=== PATIENT | female | born 1995 | race Caucasian/White ===

== ENCOUNTER 2017-11-05 10:17 | Day surgery (SDC) | payer OTHER ==
[2017-11-05] MEDS: NS 1,000 ML IV (10:40)
[2017-11-05] MEDS ORDERED: LIDOCAINE 2% INJ 100 MG/5 ML SDV (FOR ANES.) As Ordered (11:41)
[2017-11-05] MEDS ORDERED: PROPOFOL 200 MG/20 ML VIAL As Ordered (11:41)
== END 2017-11-05 12:35 | disposition home or self-care (01) ==
LOC: M OPP 10:17
DX: R12 Heartburn (principal); K22.8 Other specified diseases of esophagus; K44.9 Diaphragmatic hernia without obstruction or gangrene; K25.9 Gastric ulcer, unspecified as acute or chronic, without hemorrhage or perforation; K21.9 Gastro-esophageal reflux disease without esophagitis; R06.02 Shortness of breath; F31.9 Bipolar disorder, unspecified; G43.909 Migraine, unspecified, not intractable, without status migrainosus; Z86.711 Personal history of pulmonary embolism; G47.8 Other sleep disorders; E66.9 Obesity, unspecified; F12.20 Cannabis dependence, uncomplicated; Z79.01 Long term (current) use of anticoagulants; Z79.899 Other long term (current) drug therapy; Z87.891 Personal history of nicotine dependence
CPT/HCPCS: 43239

== ENCOUNTER 2017-12-22 16:21 | Emergency (ER) | payer OTHER ==
[2017-12-22 17:13] LABS: HEMATOCRIT 36.4 % (36.0-47.0); MEAN CORPUSCULAR HEMOGLOBIN 31.2 pg (27.0-33.0); MEAN CORPUSCULAR VOLUME 94.5 fl (80.0-96.0); PLATELET COUNT, AUTOMATED 278 10^3/uL (150-450); RED BLOOD COUNT 3.85 10^6/uL (4.00-5.40); RED CELL DISTRIBUTION WIDTH 14.6 % (11.5-14.5); WHITE BLOOD COUNT 6.2 10^3/uL (4.0-10.0)
[2017-12-22 17:22] LABS: CONTROL LINE HCG INT CTR LINE PRESENT; HCG, SERUM QUALITATIVE NEGATIVE (NEGATIVE)
[2017-12-22 17:26] LABS: AMPHETAMINES LEVEL URINE NEGATIVE (NEGATIVE); BARBITURATES URINE NEGATIVE (NEGATIVE); BENZODIAZEPINES URINE NEGATIVE (NEGATIVE); CANNABINOIDS URINE POSITIVE (NEGATIVE); COCAINE METABOLITE URINE NEGATIVE (NEGATIVE); METHADONE URINE NEGATIVE (NEGATIVE); OPIATES URINE NEGATIVE (NEGATIVE); PHENCYCLIDINE URINE NEGATIVE (NEGATIVE)
[2017-12-22 17:39] LABS: ACETAMINOPHEN LEVEL < 2.0 UG/ML (10.0-30.0); ALBUMIN 3.4 GM/DL (3.2-5.2); ALKALINE PHOSPHATASE 92 U/L (45-117); ALT/SGPT 19 U/L (12-78); ANION GAP 4 MEQ/L (8-16); AST/SGOT 14 U/L (7-37); BILIRUBIN,DIRECT < 0.1 MG/DL (0.0-0.2); BILIRUBIN,TOTAL 0.2 MG/DL (0.2-1.0); BLOOD UREA NITROGEN 11 MG/DL (7-18); CALCIUM LEVEL 8.4 MG/DL (8.5-10.1); CARBON DIOXIDE LEVEL 28 MEQ/L (21-32); CHLORIDE LEVEL 110 MEQ/L (98-107); CREATININE FOR GFR 0.74 MG/DL (0.55-1.30); GLOMERULAR FILTRATION RATE > 60.0 (>60); GLUCOSE, FASTING 80 MG/DL (70-100); POTASSIUM SERUM 3.9 MEQ/L (3.5-5.1); SALICYLATE LEVEL 2.5 MG/DL (5.0-30.0); SODIUM LEVEL 142 MEQ/L (136-145); TOTAL PROTEIN 6.8 GM/DL (6.4-8.2)
[2017-12-22 17:41] LABS: ETHYL ALCOHOL (ETHANOL) < 0.003 % (0.000-0.010)
== END 2017-12-22 19:41 | disposition home or self-care (01) ==
LOC: M ED 16:21
DX: F43.0 Acute stress reaction (principal); F31.9 Bipolar disorder, unspecified; F20.9 Schizophrenia, unspecified; Z86.711 Personal history of pulmonary embolism
CPT/HCPCS: 80320

== ENCOUNTER 2020-09-29 19:52 | Emergency (ER) | payer MEDICAID, OTHER, SELFPAY ==
[~2020-09-29] VITALS: Ht 154.9 cm; Wt 102.4 kg
[~2020-09-29 19:52] MED LIST: ACET-683 PO; ACET1TAB16 PO; ALBU17IN INH; BUPR1TAB53 PO; FLON0.054; IBUP100S44 PO; IBUP80TA PO; MELO7.5T7 PO; NEXI1CAP3 GT; NICO21DI26 TOP; OMEP40CA97 PO; OXYC1TAB23 PO; PRENTAB9 PO; PRIL40CA PO; SUCR1TA PO; WELL75TA PO; XARE10TA PO; XARE15TA PO; XULA1DIS TD; ZOLO100T PO; ZOLO50TA PO
[2020-09-29] MEDS ORDERED: CITA20TA6 PO (19:57)
[2020-09-29] MEDS ORDERED: CLAR5TAB7 PO (19:57)
[2020-09-29 20:36] LABS: BASO % 0.4 % (0.0-1.0); EOS # 0.2 10^3/uL (0.0-0.5); EOS % 1.6 % (0.0-3.0); HEMATOCRIT 36.2 % (36.0-47.0); HEMOGLOBIN 11.6 g/dl (12.0-15.5); LYMPH % 28.8 % (24.0-44.0); MEAN CORPUSCULAR HEMOGLOBIN 30.5 pg (27.0-33.0); MEAN CORPUSCULAR VOLUME 95.3 fl (80.0-96.0); MONO # 0.8 10^3/uL (0.0-0.8); MONO % 7.8 % (0.0-5.0); NEUTROPHILS # 6.3 10^3/uL (1.5-8.5); PLATELET COUNT, AUTOMATED 301 10^3/uL (150-450); WHITE BLOOD COUNT 10.3 10^3/uL (4.0-10.0)
[2020-09-29 21:48] VITALS: BP 117/59
== END 2020-09-29 21:53 | disposition home or self-care (01) ==
LOC: M ED 19:52
DX: Z32.01 Encounter for pregnancy test, result positive (principal); O26.891 Other specified pregnancy related conditions, first trimester; M54.9 Dorsalgia, unspecified; O26.811 Pregnancy related exhaustion and fatigue, first trimester; Z79.899 Other long term (current) drug therapy; Z3A.00 Weeks of gestation of pregnancy not specified

== ENCOUNTER → 2020-11-01 | Outpatient (REF) | payer OTHER ==
[~2020-11-01] MED LIST changes: +CITA20TA6 PO; +CLAR5TAB7 PO
[2020-11-01 16:15] LABS: HEMATOCRIT 36.9 % (36.0-47.0); HEMOGLOBIN 12.4 g/dl (12.0-15.5); MEAN CORPUSCULAR HGB CONC 33.6 g/dl (32.0-36.5); MEAN CORPUSCULAR VOLUME 95.3 fl (80.0-96.0); PLATELET COUNT, AUTOMATED 261 10^3/uL (150-450); RED BLOOD COUNT 3.87 10^6/uL (4.00-5.40); WHITE BLOOD COUNT 8.9 10^3/uL (4.0-10.0)
[2020-11-01 16:52] LABS: HEPATITIS C VIRUS ABY INDEX 0.1 INDEX (<0.8); HIV 1&2 SCREEN CENTAUR NEGATIVE (NEGATIVE)
[2020-11-01 17:37] LABS: CHLAMYDIA DNA AMPLIFICATION NEGATIVE (NEGATIVE); GC DNA AMPLIFICATION NEGATIVE (NEGATIVE)
== END ==
LOC: M PLALAB 12:51
PROVIDERS: ATTEND Obstetrics & Gynecology
DX: O34.211 Maternal care for low transverse scar from previous cesarean delivery (principal)

== ENCOUNTER → 2020-11-06 | Outpatient (REF) | payer OTHER | LOC: M PLALAB 10:25 | PROVIDERS: ATTEND Obstetrics & Gynecology | DX: O09.291 Supervision of pregnancy with other poor reproductive or obstetric history, first trimester (principal) ==

== ENCOUNTER → 2020-11-06 | Outpatient (REF) | payer OTHER ==
[2020-11-06 15:00] LABS: CREATININE,RANDOM URINE 39.9 MG/DL; TOTAL PROTEIN,RANDOM URINE < 5.0 MG/DL (0.0-12.0)
== END ==
LOC: M SFHCWAGY 13:25
PROVIDERS: ATTEND Obstetrics & Gynecology
DX: O09.291 Supervision of pregnancy with other poor reproductive or obstetric history, first trimester (principal)

== ENCOUNTER → 2020-11-14 | Outpatient (REF) | payer OTHER | LOC: M PLALAB 11:22 | PROVIDERS: ATTEND Obstetrics & Gynecology | DX: Z86.32 Personal history of gestational diabetes (principal) ==

== ENCOUNTER → 2020-11-14 | Outpatient (CLI) | payer OTHER | LOC: M PLALAB 11:26 | PROVIDERS: ATTEND Obstetrics & Gynecology | DX: Z34.81 Encounter for supervision of other normal pregnancy, first trimester (principal) ==

== ENCOUNTER 2020-11-28 15:57 | Emergency (ER) | payer OTHER ==
[~2020-11-28] VITALS: Ht 154.9 cm; Wt 99.4 kg
[2020-11-28] MEDS ORDERED: ONDA-83 (16:15)
[2020-11-28] MEDS ORDERED: ASPI81CH33 PO (16:15)
[2020-11-28] MEDS ORDERED: SERT25TA21 (16:15)
[2020-11-28] MEDS ORDERED: NS 1,000 ML IV ONE (16:35)
[2020-11-28 17:20] LABS: BASO % 0.2 % (0.0-1.0); EOS # 0.1 10^3/uL (0.0-0.5); EOS % 0.6 % (0.0-3.0); HEMATOCRIT 37.2 % (36.0-47.0); HEMOGLOBIN 12.5 g/dl (12.0-15.5); LYMPH # 1.6 10^3/uL (1.5-5.0); MEAN CORPUSCULAR HEMOGLOBIN 32.2 pg (27.0-33.0); MEAN CORPUSCULAR HGB CONC 33.6 g/dl (32.0-36.5); MEAN CORPUSCULAR VOLUME 95.9 fl (80.0-96.0); MONO # 0.8 10^3/uL (0.0-0.8); MONO % 6.9 % (2.0-8.0); NEUTROPHILS # 8.6 10^3/uL (1.5-8.5); NEUTROPHILS % 77.9 % (36.0-66.0); PLATELET COUNT, AUTOMATED 222 10^3/uL (150-450); RED BLOOD COUNT 3.88 10^6/uL (4.00-5.40); WHITE BLOOD COUNT 11.1 10^3/uL (4.0-10.0)
[2020-11-28 17:25] LABS: APPEARANCE, URINE CLOUDY (CLEAR); BACTERIA, URINE AUTO 1+ (NEGATIVE); BILIRUBIN, URINE AUTO 1+ (NEGATIVE); BLOOD, URINE BLOOD NEGATIVE (NEGATIVE); COLOR, URINE AMBER (YELLOW); GLUCOSE, URINE (UA) AUTO NEGATIVE (NEGATIVE); KETONE, URINE AUTO TRACE mg/dL (NEGATIVE); LEUKOCYTE ESTERASE, URINE AUTO TRACE (NEGATIVE); MUCUS, URINE LARGE (NEGATIVE); NITRITE, URINE AUTO NEGATIVE (NEGATIVE); PROTEIN, URINE AUTO 2+ mg/dL (NEGATIVE); RBC, URINE AUTO 0 /HPF (0-3); SPECIFIC GRAVITY URINE AUTO 1.025 (1.002-1.035); SQUAMOUS EPITHELIAL CELL UR AU 33 /HPF (0-6); WBC, URINE AUTO 6 /HPF (0-3)
[2020-11-28 17:51] LABS: ALBUMIN 3.3 GM/DL (3.2-5.2); ALT/SGPT 15 U/L (12-78); BILIRUBIN,DIRECT < 0.1 MG/DL (0.0-0.2); BILIRUBIN,TOTAL 0.3 MG/DL (0.2-1.0); BLOOD UREA NITROGEN 7 MG/DL (7-18); CALCIUM LEVEL 8.9 MG/DL (8.5-10.1); CARBON DIOXIDE LEVEL 23 MEQ/L (21-32); CHLORIDE LEVEL 109 MEQ/L (98-107); FREE T4 0.85 NG/DL (0.76-1.46); GLOMERULAR FILTRATION RATE > 60.0 (>60); GLUCOSE, FASTING 77 MG/DL (70-100); POTASSIUM SERUM 3.9 MEQ/L (3.5-5.1); SODIUM LEVEL 140 MEQ/L (136-145); TOTAL PROTEIN 6.7 GM/DL (6.4-8.2)
[2020-11-28 19:40] VITALS: BP 118/64
--- NOTE | 2020-11-29 00:32 | ECGEPIP ---
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
== END 2020-11-28 19:44 | disposition home or self-care (01) ==
LOC: M ED 15:57
DX: O26.92 Pregnancy related conditions, unspecified, second trimester (principal); R55 Syncope and collapse; Z86.16 Personal history of COVID-19; O99.342 Other mental disorders complicating pregnancy, second trimester; Z3A.14 14 weeks gestation of pregnancy; R00.1 Bradycardia, unspecified; Z79.82 Long term (current) use of aspirin; Z79.899 Other long term (current) drug therapy

== ENCOUNTER → 2020-12-04 | Outpatient (CLI) | payer OTHER ==
[~2020-12-04] MED LIST changes: +ASPI81CH33 PO; +ONDA-83; +SERT25TA21
== END ==
LOC: M WHC 03:05
PROVIDERS: ATTEND Obstetrics & Gynecology
DX: Z36.89 Encounter for other specified antenatal screening (principal); Z53.9 Procedure and treatment not carried out, unspecified reason; Z3A.00 Weeks of gestation of pregnancy not specified

== ENCOUNTER → 2020-12-06 | Outpatient (CLI) | payer OTHER | LOC: M LAB 08:10 | PROVIDERS: ATTEND Obstetrics & Gynecology | DX: O99.810 Abnormal glucose complicating pregnancy (principal); Z3A.00 Weeks of gestation of pregnancy not specified ==

== ENCOUNTER → 2021-01-09 | Outpatient (CLI) | payer OTHER ==
--- NOTE | 2021-01-09 13:08 | REP ---
INDICATION: ANATOMY. COMPARISON: None. TECHNIQUE: Transabdominal obstetric sonography. FINDINGS: Scanning through the gravid uterus demonstrates a viable single intrauterine gestation in cephalic lie. motion is observed and heart rate is recorded at 160 beats per minute. A posterior placenta is seen, grade 1, without evidence of placenta previa. Closed cervical length is measured at 3.3 cm transabdominally. No extrauterine abnormality is observed. Amniotic fluid is subjectively normal. No anomaly is seen. The following anatomic structures are identified and felt to be sonographically unremarkable: cranium, choroid plexus, cavum, cerebellum and posterior fossa, face and profile, lungs, four-chamber heart with left and right ventricular outflow tract views, diaphragm, left-sided stomach, abdominal wall cord insertion, three-vessel umbilical cord, kidneys and bladder, spine, and upper and lower extremities. Biometry chart: BPD 4.4 cm, 19 weeks 3 days Head circumference 16.9 cm, 19 weeks 4 days , high abdominal circumference 12.9 cm, 18 weeks 3 days Femur length 3.4 cm, 20 weeks 5 days Humeral length 3.2 cm, 20 weeks 6 days HC AC ratio 1.31) 1.06-1.25) Cephalic index normal 0.72 Estimated weight 297 g, 0 lb 10 oz, 27th percentile for 19 weeks 6 days IMPRESSION: Viable single intrauterine gestation at 19 weeks 5 days by today's composite sonographic criteria. ROBERT by today's sonography May 31, 2021. No complication identified. Expected gestational age estimate based on prior data 19 weeks 6 days, ROBERT by prior data 30 May 2021. <Electronically signed by Moses Serna > 01/09/21 [id number]
== END ==
LOC: M WHC 10:33
PROVIDERS: ATTEND Advanced Practice Midwife
DX: Z34.82 Encounter for supervision of other normal pregnancy, second trimester (principal); Z3A.14 14 weeks gestation of pregnancy

== ENCOUNTER → 2021-03-15 | Outpatient (REF) | payer OTHER ==
[~2021-03-15] MED LIST changes: +OMEP40CA4 PO; -OMEP40CA97 PO
[2021-03-15 15:43] LABS: HEMATOCRIT 36.7 % (36.0-47.0); HEMOGLOBIN 12.3 g/dl (12.0-15.5); MEAN CORPUSCULAR HEMOGLOBIN 34.6 pg (27.0-33.0); MEAN CORPUSCULAR HGB CONC 33.5 g/dl (32.0-36.5); MEAN CORPUSCULAR VOLUME 103.1 fl (80.0-96.0); PLATELET COUNT, AUTOMATED 222 10^3/uL (150-450); RED BLOOD COUNT 3.56 10^6/uL (4.00-5.40); WHITE BLOOD COUNT 12.3 10^3/uL (4.0-10.0)
== END ==
LOC: M PLALAB 12:27
PROVIDERS: ATTEND Advanced Practice Midwife
DX: O24.312 Unspecified pre-existing diabetes mellitus in pregnancy, second trimester (principal)

== ENCOUNTER → 2021-04-10 | Outpatient (CLI) | payer OTHER ==
--- NOTE | 2021-04-10 15:08 | REP ---
INDICATION: BPP/GROWTH/DIABETES. COMPARISON: Comparison study January 09, 2021.. TECHNIQUE: Limited obstetric sonography transabdominal study. FINDINGS: Scanning demonstrates a single living intrauterine gestation in a breech lie. motion is observed and heart rate is recorded at 155 beats per minute. A posterior grade 3 placenta is seen without evidence of placenta previa. Amniotic fluid is subjectively normal. RICARDO is normal at 18.3 cm. Biophysical profile score is 8 out of a possible 8. SD ratio in the umbilical cord artery by Doppler is normal at 2.87. IMPRESSION: Single intrauterine gestation at 32 weeks 6 days by composite criteria from the prior sonography, ROBERT May 30, 2021. Biophysical profile score 8 out of a possible 8. RICARDO 18.3 cm. <Electronically signed by Moses Serna > 04/10/21 [id number]
== END ==
LOC: M WHC 13:24
PROVIDERS: ATTEND Obstetrics & Gynecology
DX: O34.211 Maternal care for low transverse scar from previous cesarean delivery (principal)

== ENCOUNTER → 2021-04-11 | Outpatient (CLI) | payer OTHER | LOC: M WHC 14:03 | PROVIDERS: ATTEND Obstetrics & Gynecology | DX: Z34.83 Encounter for supervision of other normal pregnancy, third trimester (principal); Z3A.33 33 weeks gestation of pregnancy ==

== ENCOUNTER → 2021-04-13 | Outpatient (CLI) | payer OTHER ==
--- NOTE | 2021-04-13 16:00 | REP ---
INDICATION: DIABETES,GROWTH. COMPARISON: 04/10/2021. TECHNIQUE: Real-time sonographic evaluation of the gravid uterus performed. FINDINGS: Estimated gestational age is33 weeks 2 days, EDC 05/30/2021. Today's measurements indicate appropriate growth. Presentation: Breech Placenta posterior, grade 1, without evidence of placenta previa. heart rate is recorded at 153 beats per minute. Amniotic fluid is subjectively normal. RICARDO 12.6, normal range 8.2-24.6. Closed cervical length is measured at 3.6 cm. Biometry chart: BPD: 80 mm, 32 weeks 1 days, 33rd percentile. HC: 298 mm, 33 weeks 0 days, 45th percentile AC: 289 mm, 33 weeks 0 days, 45th percentile Femur length: 65 mm, 33 weeks 3 days, 51st percentile HC to AC ratio: 1.03, normal range 0.95-1.13. Estimated weight: 2097g, 33rd percentile. IMPRESSION: Viable single intrauterine gestation as above. <Electronically signed by Shaji Martínez > 04/13/21 [id number]
== END ==
LOC: M WHC 12:59
PROVIDERS: ATTEND Obstetrics & Gynecology
DX: O24.419 Gestational diabetes mellitus in pregnancy, unspecified control (principal)

== ENCOUNTER → 2021-04-25 | Outpatient (REF) | payer OTHER | LOC: M SFHCWAGY 15:07 | PROVIDERS: ATTEND Obstetrics & Gynecology | DX: O24.313 Unspecified pre-existing diabetes mellitus in pregnancy, third trimester (principal) ==

== ENCOUNTER → 2021-05-11 | Outpatient (CLI) | payer OTHER ==
[~2021-05-11] MED LIST changes: +ESOM1CAP5 PO; +PRENTAB53 PO; +SERT50TA29 PO
== END ==
LOC: M LABSMTC 12:48
PROVIDERS: ATTEND Anesthesiology
DX: Z01.812 Encounter for preprocedural laboratory examination (principal)

== ENCOUNTER 2021-05-16 07:16 | Inpatient (IN) | payer OTHER ==
[~2021-05-16] VITALS: Ht 154.9 cm; Wt 95.3 kg
[2021-05-16] VITALS (7 sets, daily range): BP systolic 106–131; BP diastolic 58–79
[2021-05-16] MEDS ORDERED: LACTATED RINGER'S 1000 ML IV STA (07:39)
[2021-05-16] MEDS ORDERED: ceFAZolin SOD 3 GM IV Place Holder IV ONE (07:40)
[2021-05-16] MEDS ORDERED: LR 1,000 ML IV SCH ×3 (07:40→12:00)
[2021-05-16] MEDS ORDERED: BICITRA 30ML SOLN UDC PO ONE (07:40)
[2021-05-16] MEDS ORDERED: TUMS750C22 PO (07:51)
[2021-05-16] MEDS ORDERED: ACET500P3 PO (07:52)
[2021-05-16] MEDS ORDERED: HOME MED LIST COMPLETE! XX SCH (07:55)
[2021-05-16] MEDS ORDERED: ceFAZolin SOD 1 GM in D5W MINI-BAG PLUS 50 ML IV ONE (07:55)
[2021-05-16] MEDS ORDERED: ceFAZolin SOD 2 GM in IV 1 EA IV ONE (07:55)
[2021-05-16 08:20] LABS: HEMATOCRIT 33.7 % (36.0-47.0); HEMOGLOBIN 11.4 g/dl (12.0-15.5); MEAN CORPUSCULAR HEMOGLOBIN 33.4 pg (27.0-33.0); MEAN CORPUSCULAR HGB CONC 33.8 g/dl (32.0-36.5); MEAN CORPUSCULAR VOLUME 98.8 fl (80.0-96.0); PLATELET COUNT, AUTOMATED 250 10^3/uL (150-450); RED BLOOD COUNT 3.41 10^6/uL (4.00-5.40); WHITE BLOOD COUNT 11.8 10^3/uL (4.0-10.0)
[2021-05-16] MEDS ORDERED: SERTRALINE HCL 50 MG TAB PO SCH (09:00)
[2021-05-16] MEDS ORDERED: OMEPRAZOLE 20 MG CAP PO SCH (09:00)
[2021-05-16] MEDS ORDERED: ONDANSETRON 4MG/2ML VIAL As Ordered ONE (09:29)
[2021-05-16] MEDS ORDERED: MORPHINE PRES-FREE INJ 10 MG/10 ML VIAL (J2274) As Ordered ONE (09:29)
[2021-05-16] MEDS ORDERED: fentaNYL 100 MCG/2 ML INJECTION (J3010) As Ordered ONE (09:29)
[2021-05-16] MEDS ORDERED: KETOROLAC 60MG 2ML VIAL As Ordered ONE (09:29)
[2021-05-16] MEDS ORDERED: OXYTOCIN INJ 10 UNITS/ML VIAL (J2590) As Ordered ONE (09:29)
[2021-05-16] MEDS ORDERED: ONDANSETRON 4MG/2ML VIAL IV PRN ×3 (10:23→12:00)
[2021-05-16] MEDS ORDERED: METOCLOPRAMIDE INJ 10MG/2ML VIAL (J2765 PER 1) IV PRN ×2 (10:23→12:00)
[2021-05-16] MEDS ORDERED: NALBUPHINE HCL 10 MG/ML AMP (J2300) IV PRN (10:23)
[2021-05-16] MEDS ORDERED: NALOXONE INJ 0.4MG/1ML VIAL (J2310 PER 1MG) IV PRN ×2 (10:23)
[2021-05-16] MEDS ORDERED: diphenhydrAMINE 50MG/ML VIAL (J1200) IV PRN (10:23)
[2021-05-16] MEDS ORDERED: METF500T13 PO (10:51)
[2021-05-16] MEDS ORDERED: ePHEDrine SULFATE 25 MG/5 ML(5MG/ML) SYRINGE As Ordered ONE (10:57)
[2021-05-16] MEDS ORDERED: OXYTOCIN DRIP 30 UNITS in IV 1 EA IV SCH (11:35)
[2021-05-16] MEDS ORDERED: RHOGAM 300 MCG (1500 IU) INJ (J2790) IM SCH (11:35)
[2021-05-16] MEDS ORDERED: PERCOCET 5MG/325MG TAB PO PRN ×2 (11:35→12:00)
[2021-05-16] MEDS ORDERED: MEASLES,MUMPS,RUBELLA VACCINE INJ (MMR-II) (90707) SC SCH (11:35)
[2021-05-16] MEDS ORDERED: SIMETHICONE 80MG CHEW TAB PO PRN (11:35)
[2021-05-16] MEDS ORDERED: IBUP80TA PO (11:43)
[2021-05-16] MEDS ORDERED: COLA100C5 PO (11:43)
[2021-05-16] MEDS ORDERED: PERCOCET PO (11:43)
[2021-05-16] MEDS ORDERED: fentaNYL 100 MCG/2 ML INJECTION (J3010) IV PRN (12:00)
[2021-05-16] MEDS: ACETAMINOPHEN 500 MG TAB PO PRN (13:47)
[2021-05-16] MEDS: KETOROLAC 30 MG/ML 1ML VIAL IV SCH ×2 (17:24→23:40)
[2021-05-16] MEDS: DOCUSATE SODIUM 100MG CAPSULE PO SCH (23:39)
[2021-05-17 02:00] VITALS: BP 110/55
[2021-05-17] MEDS: KETOROLAC 30 MG/ML 1ML VIAL IV SCH (05:03)
[2021-05-17] MEDS: PERCOCET 5MG/325MG TAB PO PRN ×3 (05:08→18:50)
[2021-05-17 05:46] VITALS: BP 103/61
[2021-05-17 08:18] LABS: HEMATOCRIT 32.2 % (36.0-47.0); HEMOGLOBIN 10.5 g/dl (12.0-15.5); MEAN CORPUSCULAR HEMOGLOBIN 33.5 pg (27.0-33.0); MEAN CORPUSCULAR HGB CONC 32.6 g/dl (32.0-36.5); MEAN CORPUSCULAR VOLUME 102.9 fl (80.0-96.0); PLATELET COUNT, AUTOMATED 221 10^3/uL (150-450); RED BLOOD COUNT 3.13 10^6/uL (4.00-5.40); WHITE BLOOD COUNT 7.9 10^3/uL (4.0-10.0)
[2021-05-17] MEDS: DOCUSATE SODIUM 100MG CAPSULE PO SCH ×2 (08:29→21:06)
[2021-05-17] MEDS: PRENATAL VITAMINS CHEWABLE TABLET PO SCH (08:29)
[2021-05-17] MEDS: OMEPRAZOLE 20 MG CAP PO SCH (09:05)
[2021-05-17] MEDS: SERTRALINE HCL 50 MG TAB PO SCH (09:05)
[2021-05-17] MEDS: ACETAMINOPHEN 500 MG TAB PO PRN (09:06)
[2021-05-17 09:47] VITALS: BP 104/65
[2021-05-17] MEDS: IBUPROFEN 800 MG TAB PO SCH ×2 (13:16→21:06)
[2021-05-17 14:00] VITALS: BP 146/76
[2021-05-17 18:01] VITALS: BP 133/79
[2021-05-17] MEDS ORDERED: OMEPRAZOLE 20 MG CAP PO SCH (21:00)
[2021-05-17] MEDS ORDERED: SERTRALINE HCL 50 MG TAB PO SCH (21:00)
[2021-05-17 22:00] VITALS: BP 123/80
[2021-05-18] MEDS: PERCOCET 5MG/325MG TAB PO PRN (01:34)
[2021-05-18 02:00] VITALS: BP 134/81
[2021-05-18] MEDS: IBUPROFEN 800 MG TAB PO SCH (05:19)
[2021-05-18 06:00] VITALS: BP 126/60
[2021-05-18] MEDS: SERTRALINE HCL 50 MG TAB PO SCH (07:32)
[2021-05-18] MEDS: PRENATAL VITAMINS CHEWABLE TABLET PO SCH (07:32)
[2021-05-18] MEDS: OMEPRAZOLE 20 MG CAP PO SCH (07:41)
[2021-05-18] MEDS: DOCUSATE SODIUM 100MG CAPSULE PO SCH (07:43)
[2021-05-18] MEDS ORDERED: LOVE1INJ SC (08:52)
[2021-05-18 09:50] VITALS: BP 109/62
[2021-05-18 10:26] LABS: HEMATOCRIT 28.5 % (36.0-47.0); HEMOGLOBIN 9.4 g/dl (12.0-15.5); MEAN CORPUSCULAR HEMOGLOBIN 33.5 pg (27.0-33.0); MEAN CORPUSCULAR VOLUME 101.4 fl (80.0-96.0); PLATELET COUNT, AUTOMATED 213 10^3/uL (150-450); RED BLOOD COUNT 2.81 10^6/uL (4.00-5.40); WHITE BLOOD COUNT 6.6 10^3/uL (4.0-10.0)
[2021-05-18 10:51] LABS: CREATININE FOR GFR 0.48 MG/DL (0.55-1.30); GLOMERULAR FILTRATION RATE > 60.0 (>60)
[2021-05-18] MEDS ORDERED: ENOXAPARIN 40MG/0.4ML SYRINGE (J1650 PER 10MG) SC SCH (11:00)
== END 2021-05-18 12:30 | disposition home or self-care (01) | DRG 540 ==
LOC: M LDI 07:16 → M OBS 12:53
PROVIDERS: ADMIT Obstetrics & Gynecology; ATTEND Obstetrics & Gynecology
PROC: 0UB70ZZ Excision of Bilateral Fallopian Tubes, Open Approach (ICD-10-PCS; 2021-05-16)
PROC: 10D00Z1 Extraction of Products of Conception, Low, Open Approach (ICD-10-PCS; principal; 2021-05-16 09:30)
DX: O34.211 Maternal care for low transverse scar from previous cesarean delivery (principal); Z3A.38 38 weeks gestation of pregnancy; Z37.0 Single live birth; Z30.2 Encounter for sterilization; O24.12 Pre-existing type 2 diabetes mellitus, in childbirth

== ENCOUNTER → 2021-08-03 | Outpatient (REF) | payer OTHER ==
[~2021-08-03] MED LIST changes: +ACET500P3 PO; +COLA100C5 PO; +LOVE1INJ SC; +METF500T13 PO; +PERCOCET PO; +TUMS750C22 PO
== END ==
LOC: M LAB REF 14:19
PROVIDERS: ATTEND Physician Assistant
DX: R05.9 Cough, unspecified (principal); R50.9 Fever, unspecified

== ENCOUNTER 2022-08-01 21:04 | Emergency (ER) | payer OTHER ==
[~2022-08-01] VITALS: Ht 154.9 cm; Wt 97.7 kg
[~2022-08-01 21:04] MED LIST changes: -ACET1TAB16 PO; +ACET300T48 PO
[2022-08-01 21:06] VITALS: BP 122/84
== END 2022-08-01 21:16 | disposition left against medical advice (07) ==
LOC: M ED 21:04
DX: Z53.21 Procedure and treatment not carried out due to patient leaving prior to being seen by health care provider (principal)

== ENCOUNTER 2022-10-22 01:53 | Emergency (ER) | payer OTHER | END 2022-10-22 02:32 | disposition left against medical advice (07) | LOC: M ED 01:53 → EDBD 01:53 → M ED 02:32 | DX: Z53.21 Procedure and treatment not carried out due to patient leaving prior to being seen by health care provider (principal) ==

== ENCOUNTER 2022-12-23 15:54 | Observation (INO) | payer OTHER ==
[~2022-12-23] VITALS: Ht 154.9 cm; Wt 91.6 kg
[2022-12-23] MEDS ORDERED: CHARCOAL ACTIVATED LIQUID 25GM/120ML BTL PO ONE (16:25)
[2022-12-23] MEDS ORDERED: BUSP5TA PO (16:43)
[2022-12-23] MEDS ORDERED: OMEP40CA5 PO (16:43)
[2022-12-23] MEDS: NS 1,000 ML IV SCH ×2 (16:43→23:37)
[2022-12-23 17:18] LABS: AMPHETAMINES LEVEL URINE NEGATIVE (NEGATIVE); BARBITURATES URINE NEGATIVE (NEGATIVE); BENZODIAZEPINES URINE NEGATIVE (NEGATIVE); COCAINE METABOLITE URINE NEGATIVE (NEGATIVE); METHADONE URINE NEGATIVE (NEGATIVE)
[2022-12-23 17:19] LABS: CANNABINOIDS URINE NEGATIVE (NEGATIVE); OPIATES URINE NEGATIVE (NEGATIVE); PHENCYCLIDINE URINE NEGATIVE (NEGATIVE)
[2022-12-23 17:29] LABS: RSV AMPLIFICATION NEGATIVE (NEGATIVE)
[2022-12-23 17:31] LABS: BASO % 0.5 % (0.0-1.0); EOS # 0.1 10^3/uL (0.0-0.5); EOS % 1.4 % (0.0-3.0); HEMATOCRIT 38.4 % (36.0-47.0); LYMPH # 1.8 10^3/uL (1.5-5.0); LYMPH % 27.3 % (24.0-44.0); MEAN CORPUSCULAR HEMOGLOBIN 31.5 pg (27.0-33.0); MEAN CORPUSCULAR HGB CONC 33.9 g/dl (32.0-36.5); MONO # 0.6 10^3/uL (0.0-0.8); MONO % 8.9 % (2.0-8.0); NEUTROPHILS # 4.1 10^3/uL (1.5-8.5); NEUTROPHILS % 61.4 % (36.0-66.0); PLATELET COUNT, AUTOMATED 236 10^3/uL (150-450); RED BLOOD COUNT 4.13 10^6/uL (4.00-5.40); WHITE BLOOD COUNT 6.6 10^3/uL (4.0-10.0)
[2022-12-23 18:02] LABS: ETHYL ALCOHOL (ETHANOL) < 0.003 % (0.000-0.010)
[2022-12-23 18:03] LABS: ACETAMINOPHEN LEVEL 2.1 UG/ML (10.0-20.0); SALICYLATE LEVEL 3.5 MG/DL (<30)
[2022-12-23 18:14] LABS: ALBUMIN 3.5 G/DL (3.2-5.2); ALKALINE PHOSPHATASE 83 U/L (46-116); ALT/SGPT 19 U/L (7.0-40); AST/SGOT 16 U/L (<34); BILIRUBIN,DIRECT < 0.1 MG/DL (<0.4); BILIRUBIN,TOTAL 0.2 MG/DL (0.3-1.2); BLOOD UREA NITROGEN 11 MG/DL (9-23); CALCIUM LEVEL 8.3 MG/DL (8.5-10.1); CARBON DIOXIDE LEVEL 25 MMOL/L (20-31); CHLORIDE LEVEL 107 MMOL/L (98-107); CPK CREATINE PHOSPHOKINASE 94 U/L (34-145); CREATININE FOR GFR 0.58 MG/DL (0.55-1.30); GLOMERULAR FILTRATION RATE > 60.0 (>60); GLUCOSE, FASTING 117 MG/DL (60-100); POTASSIUM SERUM 4.1 MMOL/L (3.5-5.1); SODIUM LEVEL 137 MMOL/L (136-145); THYROID STIMULATING HORMONE 1.936 uIU/ML (0.55-4.78)
[2022-12-23 18:24] LABS: HCG, SERUM QUALITATIVE NEGATIVE (NEGATIVE); TOTAL PROTEIN 6.4 G/DL (5.7-8.2)
[2022-12-23] MEDS ORDERED: ACETAMINOPHEN TAB 650MG DOSE (2X325MG) PO PRN (18:55)
[2022-12-23] MEDS ORDERED: ZOLO100T PO (18:57)
[2022-12-23] MEDS ORDERED: HOME MED LIST COMPLETE! XX SCH (19:00)
[2022-12-23] MEDS ORDERED: PILL CUTTER 1 EACH XX PRN (19:45)
[2022-12-23] MEDS ORDERED: busPIRone 5 MG TAB PO SCH (21:00)
[2022-12-23] MEDS ORDERED: CYCLOBENZAPRINE 5MG TABLET PO SCH (21:00)
[2022-12-23] MEDS ORDERED: SERTRALINE HCL 50 MG TAB PO SCH (21:00)
[2022-12-24 07:13] LABS: HEMATOCRIT 36.8 % (36.0-47.0); HEMOGLOBIN 11.9 g/dl (12.0-15.5); MEAN CORPUSCULAR HEMOGLOBIN 30.6 pg (27.0-33.0); MEAN CORPUSCULAR HGB CONC 32.3 g/dl (32.0-36.5); MEAN CORPUSCULAR VOLUME 94.6 fl (80.0-96.0); PLATELET COUNT, AUTOMATED 226 10^3/uL (150-450); RED BLOOD COUNT 3.89 10^6/uL (4.00-5.40); WHITE BLOOD COUNT 7.5 10^3/uL (4.0-10.0)
[2022-12-24 07:41] LABS: BLOOD UREA NITROGEN 13 MG/DL (9-23); CALCIUM LEVEL 8.3 MG/DL (8.5-10.1); CARBON DIOXIDE LEVEL 25 MMOL/L (20-31); CHLORIDE LEVEL 111 MMOL/L (98-107); CREATININE FOR GFR 0.59 MG/DL (0.55-1.30); GLOMERULAR FILTRATION RATE > 60.0 (>60); GLUCOSE, FASTING 89 MG/DL (60-100); MAGNESIUM LEVEL 1.6 MG/DL (1.8-2.4); POTASSIUM SERUM 4.3 MMOL/L (3.5-5.1); SODIUM LEVEL 141 MMOL/L (136-145)
[2022-12-24] MEDS ORDERED: OMEPRAZOLE 20MG CAP PO SCH (09:00)
[2022-12-24] MEDS: MAG SULF 1GM/100ML (MAG RUN) 1 GM in IV 1 EA IV SCH ×3 (09:59→12:22)
[2022-12-24 12:37] VITALS: BP 123/80
== END 2022-12-24 12:40 | disposition home or self-care (01) ==
LOC: M ED 15:54 → M ED INP 18:52
PROVIDERS: ADMIT Family Medicine; ATTEND Family Medicine
DX: T43.011A Poisoning by tricyclic antidepressants, accidental (unintentional), initial encounter (principal); G43.909 Migraine, unspecified, not intractable, without status migrainosus; E83.42 Hypomagnesemia; K21.9 Gastro-esophageal reflux disease without esophagitis; F41.9 Anxiety disorder, unspecified; F32.A Depression, unspecified; F17.210 Nicotine dependence, cigarettes, uncomplicated; Z79.899 Other long term (current) drug therapy
CPT/HCPCS: 36415; 80048; 80076; 80143; 80307; 82077; 82550; 83735; 84443; 84703; 85025; 85027; 87631; 93005; 93041; 94760; 96361; 96365; 96366; 99285; J3475

== ENCOUNTER → 2023-01-06 | Outpatient (REF) ==
[~2023-01-06] MED LIST changes: +BUSP5TA PO; +OMEP40CA5 PO
== END ==
LOC: M EMP 08:33
PROVIDERS: ATTEND Family Medicine
DX: Z11.52 Encounter for screening for COVID-19 (principal)

== ENCOUNTER → 2023-01-13 | Outpatient (REF) | LOC: M EMP 10:54 | PROVIDERS: ATTEND Family Medicine | DX: Z20.822 Contact with and (suspected) exposure to COVID-19 (principal); Z53.9 Procedure and treatment not carried out, unspecified reason ==

== ENCOUNTER → 2023-01-14 | Outpatient (REF) | LOC: M EMP 08:48 | PROVIDERS: ATTEND Family Medicine | DX: Z11.52 Encounter for screening for COVID-19 (principal) ==

== ENCOUNTER → 2023-01-20 | Outpatient (REF) | LOC: M EMP 11:19 | PROVIDERS: ATTEND Family Medicine | DX: Z20.822 Contact with and (suspected) exposure to COVID-19 (principal) ==

== ENCOUNTER → 2023-01-27 | Outpatient (REF) | LOC: M EMP 09:06 | PROVIDERS: ATTEND Family Medicine | DX: Z11.52 Encounter for screening for COVID-19 (principal) ==

== ENCOUNTER → 2023-02-03 | Outpatient (REF) | LOC: M EMP 10:53 | PROVIDERS: ATTEND Family Medicine | DX: Z11.52 Encounter for screening for COVID-19 (principal) ==

== ENCOUNTER → 2023-02-10 | Outpatient (REF) | LOC: M EMP 10:23 | PROVIDERS: ATTEND Family Medicine | DX: Z11.52 Encounter for screening for COVID-19 (principal) ==

== ENCOUNTER → 2023-02-18 | Outpatient (REF) | LOC: M EMP 10:46 | PROVIDERS: ATTEND Family Medicine | DX: Z20.822 Contact with and (suspected) exposure to COVID-19 (principal) ==

== ENCOUNTER → 2023-02-24 | Outpatient (REF) | LOC: M EMP 10:01 | PROVIDERS: ATTEND Family Medicine | DX: Z11.52 Encounter for screening for COVID-19 (principal) ==

== ENCOUNTER 2023-03-08 09:31 | Emergency (ER) | payer OTHER ==
[~2023-03-08] VITALS: Ht 154.9 cm; Wt 103.0 kg
[2023-03-08 09:32] VITALS: BP 138/91; TEMP 98; O2SAT 99
== END 2023-03-08 10:25 | disposition left against medical advice (07) ==
LOC: M ED 09:31
DX: Z53.21 Procedure and treatment not carried out due to patient leaving prior to being seen by health care provider (principal)

== ENCOUNTER 2023-05-12 08:19 | Emergency (ER) | payer OTHER ==
[~2023-05-12] VITALS: Ht 154.9 cm; Wt 103.7 kg
[2023-05-12] MEDS ORDERED: KETOROLAC 60MG 2ML VIAL IM ONE (10:25)
[2023-05-12] MEDS ORDERED: LIDOCAINE 5% (LIDODERM) PATCH TD ONE (10:25)
[2023-05-12] MEDS ORDERED: METH-1165 PO (10:26)
[2023-05-12] MEDS ORDERED: ASPE4PAD TOP (10:26)
[2023-05-12] MEDS ORDERED: HYDR-3713 PO (10:26)
[2023-05-12] MEDS ORDERED: NAPR-837 PO (10:26)
[2023-05-12 10:36] VITALS: BP 136/79; TEMP 97.2; O2SAT 100
== END 2023-05-12 10:45 | disposition home or self-care (01) ==
LOC: M ED 08:19
DX: S39.92XA Unspecified injury of lower back, initial encounter (principal); X50.0XXA Overexertion from strenuous movement or load, initial encounter; E11.9 Type 2 diabetes mellitus without complications; F31.9 Bipolar disorder, unspecified; K21.9 Gastro-esophageal reflux disease without esophagitis; E28.2 Polycystic ovarian syndrome; F17.200 Nicotine dependence, unspecified, uncomplicated; Y99.0 Civilian activity done for income or pay
CPT/HCPCS: 72072; 72110; 96372; 99283; J1885

== ENCOUNTER → 2023-09-10 | Outpatient (REF) ==
[~2023-09-10] MED LIST changes: +ASPE4PAD TOP; +HYDR-3713 PO; +METH-1165 PO; +NAPR-837 PO
== END ==
LOC: M EMP 10:11
PROVIDERS: ATTEND Family Medicine
DX: Z11.52 Encounter for screening for COVID-19 (principal)

== ENCOUNTER → 2023-12-25 | Outpatient (REF) | payer OTHER, MEDICARE | LOC: M LAB REF 14:59 | PROVIDERS: ATTEND Surgery | DX: D22.71 Melanocytic nevi of right lower limb, including hip (principal) ==

== ENCOUNTER → 2024-03-19 | Outpatient (CLI) | payer OTHER ==
[~2024-03-19] MED LIST changes: +ESOM1CAP20 PO; -ESOM1CAP5 PO
[2024-03-19 13:29] LABS: HEMATOCRIT 40.6 % (36.0-47.0); HEMOGLOBIN 13.4 g/dl (12.0-15.5); MEAN CORPUSCULAR HEMOGLOBIN 30.9 pg (27.0-33.0); MEAN CORPUSCULAR VOLUME 93.5 fl (80.0-96.0); PLATELET COUNT, AUTOMATED 244 10^3/uL (150-450); RED BLOOD COUNT 4.34 10^6/uL (4.00-5.40); WHITE BLOOD COUNT 7.9 10^3/uL (4.0-10.0)
[2024-03-19 13:39] LABS: INR 0.99; PROTHROMBIN TIME 12.8 SECONDS (12.5-14.5)
== END ==
LOC: M LAB 12:57
PROVIDERS: ATTEND Radiology Diagnostic Radiology
DX: G93.2 Benign intracranial hypertension (principal)

== ENCOUNTER → 2024-03-22 | Outpatient (CLI) | payer OTHER ==
[~2024-03-22] MED LIST changes: +LIDOCAINE 1% MDV 20ML VIAL As Ordered ONE
[2024-03-22 10:23] VITALS: TEMP 97
[2024-03-22 12:13] LABS: APPEARANCE, CSF CLEAR (CLEAR); COLOR, CSF COLORLESS (COLORLESS); CSF TUBE# CELL CNT TUBE 1
[2024-03-22 12:30] LABS: CSF TUBE# TP TUBE 1; TOTAL PROTEIN,CSF 65.4 MG/DL (15-45)
[2024-03-22 12:33] LABS: CSF TUBE# GLU TUBE 1
[2024-03-22 12:50] VITALS: BP 142/72; O2SAT 99
[2024-03-25 00:23] LABS: IMMUNOGLOBULIN G CSF 6.1 mg/dL (0.8-7.7)
== END ==
LOC: M IRPRO 10:06
PROVIDERS: ATTEND Psychiatry & Neurology Neurology
DX: G93.2 Benign intracranial hypertension (principal)

== ENCOUNTER → 2024-06-11 | Outpatient (REF) | payer OTHER ==
[~2024-06-11] MED LIST changes: -LIDOCAINE 1% MDV 20ML VIAL As Ordered ONE
[2024-06-11 17:51] LABS: MAGNESIUM URINE RANDOM 3.1 MG/DL
[2024-06-11 17:53] LABS: CREATININE,RANDOM URINE 81.5 MG/DL
== END ==
LOC: M LAB REF 16:50
PROVIDERS: ATTEND Internal Medicine Nephrology
DX: E83.42 Hypomagnesemia (principal); E87.6 Hypokalemia

== ENCOUNTER → 2024-10-01 | Outpatient (CLI) | payer OTHER | LOC: M RAD 14:59 | PROVIDERS: ATTEND Internal Medicine Nephrology | DX: E83.42 Hypomagnesemia (principal); E87.6 Hypokalemia; N18.1 Chronic kidney disease, stage 1; N28.1 Cyst of kidney, acquired ==

== ENCOUNTER → 2024-10-05 | Outpatient (REF) | payer OTHER ==
[2024-10-05 18:54] LABS: FREE T4 1.27 NG/DL (0.89-1.76); THYROID STIMULATING HORMONE 0.763 uIU/ML (0.55-4.78)
== END ==
LOC: M LAB REF 17:24
PROVIDERS: ATTEND Internal Medicine Nephrology
DX: E03.9 Hypothyroidism, unspecified (principal)

== ENCOUNTER 2024-10-08 17:32 | Emergency (ER) | payer OTHER ==
[~2024-10-08] VITALS: Ht 154.9 cm; Wt 114.0 kg
[2024-10-08 18:33] LABS: BASO % 0.4 % (0.0-1.0); EOS # 0.1 10^3/uL (0.0-0.5); EOS % 1.4 % (0.0-3.0); HEMATOCRIT 37.6 % (36.0-47.0); HEMOGLOBIN 13.1 g/dl (12.0-15.5); LYMPH # 2.1 10^3/uL (1.5-5.0); LYMPH % 28.7 % (24.0-44.0); MEAN CORPUSCULAR HGB CONC 34.8 g/dl (32.0-36.5); MEAN CORPUSCULAR VOLUME 89.1 fl (80.0-96.0); MONO # 0.5 10^3/uL (0.0-0.8); MONO % 6.5 % (2.0-8.0); NEUTROPHILS # 4.6 10^3/uL (1.5-8.5); NEUTROPHILS % 62.9 % (36.0-66.0); PLATELET COUNT, AUTOMATED 297 10^3/uL (150-450); RED BLOOD COUNT 4.22 10^6/uL (4.00-5.40); WHITE BLOOD COUNT 7.3 10^3/uL (4.0-10.0)
[2024-10-08 18:53] LABS: BLOOD UREA NITROGEN 11 MG/DL (9-23); CALCIUM LEVEL 9.6 MG/DL (8.5-10.1); CARBON DIOXIDE LEVEL 24 MMOL/L (20-31); CHLORIDE LEVEL 106 MMOL/L (98-107); CREATININE FOR GFR 0.68 MG/DL (0.55-1.30); GLOMERULAR FILTRATION RATE > 60.0 (>60); GLUCOSE, FASTING 148 MG/DL (60-100); MAGNESIUM LEVEL 1.2 MG/DL (1.8-2.4); POTASSIUM SERUM 3.7 MMOL/L (3.5-5.1); SODIUM LEVEL 140 MMOL/L (136-145); THYROID STIMULATING HORMONE 1.165 uIU/ML (0.55-4.78)
[2024-10-08] MEDS ORDERED: LEVO125T4 (18:54)
[2024-10-08] MEDS ORDERED: POTA10CA70 (18:54)
[2024-10-08] MEDS ORDERED: CALC-356 (18:54)
[2024-10-08] MEDS ORDERED: VITA1CAP25 (18:54)
[2024-10-08] MEDS ORDERED: FLUTISP (18:54)
[2024-10-08] MEDS ORDERED: OMEP-357 (18:54)
[2024-10-08] MEDS ORDERED: MAGN400T35 (18:54)
[2024-10-08] MEDS ORDERED: CETI-24 (18:54)
[2024-10-08] MEDS ORDERED: MECL-86 (18:54)
[2024-10-08 19:45] LABS: HCG, SERUM QUALITATIVE NEGATIVE (NEGATIVE)
[2024-10-08] MEDS: KETOROLAC 30 MG/ML 1ML VIAL IV ONE (21:02)
[2024-10-08] MEDS: ACETAMINOPHEN *IV* 1,000 MG in IV 1 EA IV ONE (21:03)
[2024-10-08] MEDS: MAG SULF 1GM/100ML (MAG RUN) 1 GM in IV 1 EA IV ONE (22:06)
[2024-10-09 00:07] VITALS: BP 119/76; TEMP 97.9; O2SAT 97
== END 2024-10-09 00:11 | disposition home or self-care (01) ==
LOC: M ED 17:32
DX: E83.42 Hypomagnesemia (principal); E03.9 Hypothyroidism, unspecified; Z79.890 Hormone replacement therapy; Z79.899 Other long term (current) drug therapy
CPT/HCPCS: 70551; 80048; 83735; 84439; 84443; 84703; 85025; 87486; 87581; 87633; 87798; 93005; 96374; 96375; 99284; J0131; J1885; J3475

== ENCOUNTER 2024-10-29 19:48 | Emergency (ER) | payer OTHER ==
[~2024-10-29] VITALS: Ht 154.9 cm; Wt 113.9 kg
[~2024-10-29 19:48] MED LIST changes: +CALC-356; +CETI-24; +FLUTISP; +LEVO125T4; +MAGN400T35; +MECL-86; +OMEP-357; +POTA10CA70; +VITA1CAP25
[2024-10-29 20:16] LABS: BASO % 0.5 % (0.0-1.0); EOS # 0.1 10^3/uL (0.0-0.5); EOS % 1.3 % (0.0-3.0); HEMOGLOBIN 12.8 g/dl (12.0-15.5); LYMPH # 2.9 10^3/uL (1.5-5.0); LYMPH % 34.4 % (24.0-44.0); MEAN CORPUSCULAR HEMOGLOBIN 30.7 pg (27.0-33.0); MEAN CORPUSCULAR HGB CONC 33.7 g/dl (32.0-36.5); MEAN CORPUSCULAR VOLUME 91.1 fl (80.0-96.0); MONO # 0.9 10^3/uL (0.0-0.8); MONO % 10.4 % (2.0-8.0); NEUTROPHILS # 4.5 10^3/uL (1.5-8.5); NEUTROPHILS % 53.2 % (36.0-66.0); PLATELET COUNT, AUTOMATED 279 10^3/uL (150-450); RED BLOOD COUNT 4.17 10^6/uL (4.00-5.40); WHITE BLOOD COUNT 8.4 10^3/uL (4.0-10.0)
[2024-10-29 20:29] LABS: INR 0.95; PARTIAL THROMBOPLASTIN TIME 25.6 SECONDS (24.8-34.2)
[2024-10-29 20:44] LABS: LIPASE 45 U/L (12-53)
[2024-10-29 20:47] LABS: ALBUMIN 3.7 G/DL (3.2-5.2); ALKALINE PHOSPHATASE 76 U/L (35-104); ALT/SGPT 19 U/L (7.0-40); AST/SGOT 13 U/L (<34); BILIRUBIN,DIRECT < 0.1 MG/DL (<0.4); BILIRUBIN,TOTAL 0.4 MG/DL (0.3-1.2); BLOOD UREA NITROGEN 11 MG/DL (9-23); CALCIUM LEVEL 9.5 MG/DL (8.5-10.1); CARBON DIOXIDE LEVEL 30 MMOL/L (20-31); CHLORIDE LEVEL 105 MMOL/L (98-107); CPK CREATINE PHOSPHOKINASE 161 U/L (34-145); GLOMERULAR FILTRATION RATE > 60.0 (>60); GLUCOSE, FASTING 114 MG/DL (60-100); MAGNESIUM LEVEL 1.3 MG/DL (1.8-2.4); MB/CK RELATIVE INDEX 0.62 (< OR =4); POTASSIUM SERUM 3.7 MMOL/L (3.5-5.1); SODIUM LEVEL 143 MMOL/L (136-145); TOTAL PROTEIN 7.3 G/DL (5.7-8.2)
[2024-10-29 20:49] LABS: THYROID STIMULATING HORMONE 0.969 uIU/ML (0.55-4.78)
[2024-10-29] MEDS: ASPIRIN 81MG CHEW TABLET PO ONE (21:07)
[2024-10-29] MEDS ORDERED: ISOVUE-370 76% 100ML VIAL As Ordered ONE (21:34)
[2024-10-29 21:44] LABS: CPK CREATINE PHOSPHOKINASE 152 U/L (34-145); MB/CK RELATIVE INDEX 0.65 (< OR =4)
[2024-10-29] MEDS: MAG SULF 1GM/100ML (MAG RUN) 1 GM in IV 1 EA IV ONE (22:17)
[2024-10-30 00:15] VITALS: BP 114/61; TEMP 97
[2024-10-30 00:18] VITALS: O2SAT 96
== END 2024-10-30 00:42 | disposition home or self-care (01) ==
LOC: M ED 19:48
DX: R07.9 Chest pain, unspecified (principal); E83.42 Hypomagnesemia; R00.1 Bradycardia, unspecified; E03.9 Hypothyroidism, unspecified; H81.4 Vertigo of central origin; Z87.891 Personal history of nicotine dependence; Z88.1 Allergy status to other antibiotic agents; Z91.09 Other allergy status, other than to drugs and biological substances; Z79.899 Other long term (current) drug therapy
CPT/HCPCS: 71046; 71275; 80048; 80076; 82550; 82553; 83690; 83735; 84443; 84484; 85025; 85610; 85730; 93005; 93041; 94760; 96365; 96366; 99285; J3475; Q9967

== ENCOUNTER 2024-11-01 11:19 | Emergency (ER) | payer OTHER ==
[~2024-11-01] VITALS: Ht 154.9 cm; Wt 113.1 kg
[2024-11-01 11:59] LABS: HEMATOCRIT 38.1 % (36.0-47.0); HEMOGLOBIN 12.7 g/dl (12.0-15.5); MEAN CORPUSCULAR HEMOGLOBIN 30.8 pg (27.0-33.0); MEAN CORPUSCULAR HGB CONC 33.3 g/dl (32.0-36.5); MEAN CORPUSCULAR VOLUME 92.5 fl (80.0-96.0); PLATELET COUNT, AUTOMATED 283 10^3/uL (150-450); RED BLOOD COUNT 4.12 10^6/uL (4.00-5.40); WHITE BLOOD COUNT 6.9 10^3/uL (4.0-10.0)
[2024-11-01 12:06] LABS: KETONE, URINE AUTO RFX NEGATIVE (NEGATIVE); LEUKOCYTE ESTERASE UR AUTO RFX NEGATIVE (NEGATIVE); NITRITE, URINE AUTO RFX NEGATIVE (NEGATIVE); RBC, URINE AUTO RFX 0 /HPF (0-3); SQUAM EPITHELIAL CELL UR AURFX 1 /HPF (0-6); WBC, URINE AUTO RFX 0 /HPF (0-3)
[2024-11-01 12:52] LABS: ALBUMIN 3.7 G/DL (3.2-5.2); ALKALINE PHOSPHATASE 75 U/L (35-104); ALT/SGPT 20 U/L (7.0-40); AST/SGOT 13 U/L (<34); BILIRUBIN,TOTAL 0.2 MG/DL (0.3-1.2); BLOOD UREA NITROGEN 14 MG/DL (9-23); CALCIUM LEVEL 9.8 MG/DL (8.5-10.1); CARBON DIOXIDE LEVEL 25 MMOL/L (20-31); CHLORIDE LEVEL 107 MMOL/L (98-107); CREATININE FOR GFR 0.78 MG/DL (0.55-1.30); GLOMERULAR FILTRATION RATE > 60.0 (>60); GLUCOSE, FASTING 95 MG/DL (60-100); MAGNESIUM LEVEL 1.8 MG/DL (1.8-2.4); POTASSIUM SERUM 4.6 MMOL/L (3.5-5.1); SODIUM LEVEL 141 MMOL/L (136-145); TOTAL PROTEIN 7.1 G/DL (5.7-8.2)
[2024-11-01 14:42] VITALS: BP 119/72; TEMP 97.4; O2SAT 98
== END 2024-11-01 14:45 | disposition home or self-care (01) ==
LOC: EDBD 11:19 → M ED 11:19
DX: R55 Syncope and collapse (principal); R23.2 Flushing; K21.9 Gastro-esophageal reflux disease without esophagitis; E55.9 Vitamin D deficiency, unspecified; E28.2 Polycystic ovarian syndrome; Z88.1 Allergy status to other antibiotic agents; Z91.048 Other nonmedicinal substance allergy status; Z79.899 Other long term (current) drug therapy

== ENCOUNTER → 2024-11-17 | Outpatient (REF) | payer OTHER | LOC: M LAB REF 17:55 | PROVIDERS: ATTEND Internal Medicine Nephrology | DX: I15.2 Hypertension secondary to endocrine disorders (principal) ==